=== PATIENT | female | born 1945 | race Two or more races ===

== ENCOUNTER 2018-06-26 20:44 | Emergency (ER) | payer OTHER ==
[~2018-06-26] VITALS: Ht 160 cm; Wt 77.1 kg
[~2018-06-26 20:44] MED LIST: AMOXICILLIN500 MG PO; COZAAR100 MG; DICLOFENAC SODI50 MG PO; DIOVAN; GLIMEPIRIDE4 MG; SYNTHROID100 MCG; ZOCOR5 MG
[2018-06-27] MEDS ORDERED: LEVSIN/SL0.125 MG SL (01:54)
[2018-06-27] MEDS ORDERED: ZOFRAN ODT4 MG PO (01:54)
[2018-06-27] MEDS ORDERED: PEPCID40 MG PO (01:54)
[2018-06-27] MEDS ORDERED: PHENERGAN25 MG PO (01:54)
== END 2018-06-27 02:09 | disposition home or self-care (01) ==
LOC: ER 20:44 → EDBD 21:35 → ER 06-27 02:09
DX: K52.89 Other specified noninfective gastroenteritis and colitis (principal)

== ENCOUNTER 2018-06-29 18:13 | Emergency (ER) | payer OTHER ==
[~2018-06-29] VITALS: Ht 160 cm; Wt 77.1 kg
[~2018-06-29 18:13] MED LIST changes: +LEVSIN/SL0.125 MG SL; +PEPCID40 MG PO; +PHENERGAN25 MG PO; +ZOFRAN ODT4 MG PO
== END 2018-06-30 00:24 | disposition home or self-care (01) ==
LOC: ER 18:13
DX: R14.3 Flatulence (principal)

== ENCOUNTER 2018-11-01 04:36 | Inpatient (IN) | payer OTHER ==
[~2018-11-01] VITALS: Ht 165.1 cm; Wt 72.6 kg
[2018-11-01] MEDS ORDERED: SYNTHROID175 MCG (04:50)
--- NOTE | 2018-11-01 04:50 | NUR ---
PTE REFIERE QUE TIENE DOLOR DE PECHO DESDE SONYA. PTE REFIERE QUE TAMBIEN ESTA CON TOS RODNEY NO SIENTE ALIVIO.
--- NOTE | 2018-11-01 06:17 | NUR ---
SE RECIBE PTE FEMENIA DE 73 YRS ALERTA CONCIETE Y TRANAUILA EN COMPANIA DE FAMILIAR EN LA UNIDAD DE CHEST PAIN . PTE ES EVALADA POR LA , RENTA QUIEN ORDENA TRATAMIENTO LA CUAL SE EJECUTA SE COLOCA POR ORDEN MEDICA V/M AL 35% Y SE OBSERVA POR CAMBIOS.
--- NOTE | 2018-11-01 07:20 | NUR ---
SE RECIBE PTE DEL TURNO ANTERIOR EN MARCELLA CON BARANDAS ELEVADAS CON IVFS PATENTE, MALAIKA DE EDEMA Y ERITEMA. ACOMPANADA POR FAMILIAR, CONECTADA A MONITOR CARDIACO UN V/M AL 35% SATURANDO 97%. NO SETH PRESENTADO DOLOR DE PECHO AL MOMENTO. SE MANTIENE EN OBSERVACION.
--- NOTE | 2018-11-01 13:34 | NUR ---
EVALUADA POR LA HERNAN.FREED SE ORIENTA SOBRE TRATAMIENTO MEDICO. MEDICAMENTOS ADMINISTRADO MARCELINO ORDENADO. SE MANTIENE EN OBSERVACION.
--- NOTE | 2018-11-01 15:16 | NUR ---
SE RECIBE PACIENTE ALERTA Y ORIENTADA EN CAMA CON BARRANDAS ELEVADAS POR CASTRO SEGURIDAD EN COMPANIA DE FAMILIAR, PACIENTE CONECTADA A MONITOR CARDIACO Y OXIMETRIA DE PULSO. PACIENTE CON VENTURY MASK AL 35%, CON VENOPUNCION PATENTE MALAIKA DE EDEMA Y ERRITEMA EN BRAZO DERECHO. PACIENTE EN ESPERA DECT DE PECHO CON CONTRASTE. SE MICHAEL SIGNOS VITALES ESTABLES AL MOMENTO. SE HAILEY A PACIENTE EN CAMA BAJO OBSERVACION POR CAMBIOS EN CASTRO CONDICION.
== END 2018-11-07 14:08 | disposition designated cancer center or children's hospital (05) | DRG 281 ==
LOC: ER 04:36 → MEDI 17:27
PROVIDERS: ADMIT Internal Medicine
PROC: 4A12X4Z Monitoring of Cardiac Electrical Activity, External Approach (ICD-10-PCS; principal; 2018-11-01)
PROC: 4A033R1 Measurement of Arterial Saturation, Peripheral, Percutaneous Approach (ICD-10-PCS; 2018-11-01)
PROC: B32TYZZ Computerized Tomography (CT Scan) of Left Pulmonary Artery using Other Contrast (ICD-10-PCS; 2018-11-01)
PROC: B32SYZZ Computerized Tomography (CT Scan) of Right Pulmonary Artery using Other Contrast (ICD-10-PCS; 2018-11-01)
PROC: BB24Y0Z Computerized Tomography (CT Scan) of Bilateral Lungs using Other Contrast, Unenhanced and Enhanced (ICD-10-PCS; 2018-11-01)
PROC: BB24ZZZ Computerized Tomography (CT Scan) of Bilateral Lungs (ICD-10-PCS; 2018-11-01)
PROC: B246ZZZ Ultrasonography of Right and Left Heart (ICD-10-PCS; 2018-11-01)
PROC: 3E0F7GC Introduction of Other Therapeutic Substance into Respiratory Tract, Via Natural or Artificial Opening (ICD-10-PCS; 2018-11-01)
PROC: 4A12XM4 Monitoring of Cardiac Stress, External Approach (ICD-10-PCS; 2018-11-04)
PROC: 3E073KZ Introduction of Other Diagnostic Substance into Coronary Artery, Percutaneous Approach (ICD-10-PCS; 2018-11-04)
DX: I24.8 Other forms of acute ischemic heart disease (principal); I21.4 Non-ST elevation (NSTEMI) myocardial infarction; I50.42 Chronic combined systolic (congestive) and diastolic (congestive) heart failure; J90 Pleural effusion, not elsewhere classified; I11.0 Hypertensive heart disease with heart failure; R09.02 Hypoxemia

== ENCOUNTER 2018-12-03 09:37 | Emergency (ER) | payer OTHER ==
[~2018-12-03] VITALS: Ht 167.6 cm; Wt 69.4 kg
[~2018-12-03 09:37] MED LIST changes: +SYNTHROID175 MCG
[2018-12-03] MEDS ORDERED: TOPROL XL25 M1 (10:04)
[2018-12-03] MEDS ORDERED: PLAVIX75 MG (10:04)
[2018-12-03] MEDS ORDERED: ASA81 MG (10:04)
[2018-12-03] MEDS ORDERED: ACYCLOVIR800 MG (10:05)
== END 2018-12-03 11:27 | disposition home or self-care (01) ==
LOC: ER 09:37
DX: B00.89 Other herpesviral infection (principal)

== ENCOUNTER 2019-09-22 14:25 | Outpatient (CLI) | payer OTHER ==
[~2019-09-22 14:25] MED LIST changes: +ACYCLOVIR800 MG; +ASA81 MG; +PLAVIX75 MG; +TOPROL XL25 M1
== END 2019-09-22 15:33 | disposition home or self-care (01) ==
LOC: RAD 14:25
DX: M17.11 Unilateral primary osteoarthritis, right knee (principal); R07.89 Other chest pain; Z01.811 Encounter for preprocedural respiratory examination

== ENCOUNTER 2021-11-28 10:59 | Outpatient (CLI) | payer OTHER | END 2021-11-28 11:06 | disposition home or self-care (01) | LOC: SONOGRAMA 10:59 | PROVIDERS: ATTEND Family Medicine Adult Medicine | DX: R10.10 Upper abdominal pain, unspecified (principal) ==